=== PATIENT | male | born 1970 | race Caucasian/White ===

== ENCOUNTER 2018-08-05 07:43 | Outpatient (CLI) | payer OTHER | END 2018-08-05 23:59 | disposition home or self-care (01) | LOC: CVU 07:43 | PROVIDERS: ATTEND Internal Medicine Cardiovascular Disease | DX: I08.8 Other rheumatic multiple valve diseases (principal) | CPT/HCPCS: 0399T; 93306 ==

== ENCOUNTER 2019-04-15 09:58 | Outpatient (CLI) | payer OTHER | END 2019-04-15 23:59 | disposition home or self-care (01) | LOC: CFH 09:58 | PROVIDERS: ATTEND Nurse Practitioner Family | DX: I08.0 Rheumatic disorders of both mitral and aortic valves (principal); I70.0 Atherosclerosis of aorta | CPT/HCPCS: 93306 ==

== ENCOUNTER 2019-10-19 08:46 | Outpatient (CLI) | payer OTHER | END 2019-10-19 23:59 | disposition home or self-care (01) | LOC: CFH 08:46 | PROVIDERS: ATTEND Internal Medicine Cardiovascular Disease | DX: I08.0 Rheumatic disorders of both mitral and aortic valves (principal); I11.9 Hypertensive heart disease without heart failure; I42.7 Cardiomyopathy due to drug and external agent | CPT/HCPCS: 93306 ==

== ENCOUNTER → 2020-04-11 | Outpatient (CLI) | payer OTHER | END | disposition home or self-care (01) | LOC: CFH 07:48 | PROVIDERS: ATTEND Internal Medicine Cardiovascular Disease | DX: I08.8 Other rheumatic multiple valve diseases (principal); I11.0 Hypertensive heart disease with heart failure; I50.22 Chronic systolic (congestive) heart failure; I42.7 Cardiomyopathy due to drug and external agent | CPT/HCPCS: 93306; 93356 ==

== ENCOUNTER → 2020-10-02 | Outpatient (CLI) | payer OTHER | END | disposition home or self-care (01) | LOC: CFH 06:53 | PROVIDERS: ATTEND Internal Medicine Cardiovascular Disease | DX: I08.8 Other rheumatic multiple valve diseases (principal); I42.7 Cardiomyopathy due to drug and external agent; I10 Essential (primary) hypertension; E78.5 Hyperlipidemia, unspecified | CPT/HCPCS: 93306; 93356 ==